=== PATIENT | male | born 1975 | race Caucasian/White ===

== ENCOUNTER 2019-12-20 06:56 | Day surgery (SDC) | payer OTHER ==
[2019-12-17 15:41] VITALS: BMI 41.5
[2019-12-20] MEDS ORDERED: MIDAZOLAM HCL 2 MG/2 ML SINGLE DOSE VIAL ONE (08:40)
[2019-12-20 08:59] VITALS: TEMP 97.9
[2019-12-20 10:26] VITALS: BP 126/87; PULSE 77
--- NOTE | 2019-12-24 16:56 | PATH ---
Surgical Pathology Report Patient Name: RANDEE HUITRON [facility]. Rec. #: [id number] /Age/Gender: 1975 (Age: 44) / M Account: [id number] Location: [facility] SURGICAL Taken: 12/20/2019 Received: 12/20/2019 Reported: 12/24/2019 Physicians: Yousif Acevedo M.D. Specimen(s) Received A: JEJUNUM B: STOMACH C: ESOPHAGUS D: TRANSVERSE COLON POLYP Clinical History History of anemia Postoperative diagnosis: Normal EGD with normal Roxanne-en-Y anatomy, colon polyps, hemorrhoids Final Diagnosis A. JEJUNUM, BIOPSY: SMALL BOWEL MUCOSA WITHOUT SIGNIFICANT PATHOLOGIC FINDINGS. B. STOMACH, BIOPSY: GASTRIC BODY MUCOSA WITH MODERATE CHRONIC ACTIVE GASTRITIS. IMMUNOHISTOCHEMICAL STAIN FOR H. PYLORI IS POSITIVE (FEW). C. ESOPHAGUS, BIOPSY: SQUAMOUS MUCOSA WITH CHANGES OF MILD REFLUX TYPE ESOPHAGITIS. D. 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 SEE COMMENT. Comment: Part D, Immunohistochemical stain performed and interpreted at [facility] show the spindle cell proliferation is positive for S100. Positive and negative controls (internal if applicable) show appropriate results. Electronically Signed Rimma Tovar M.D. Gross Description A. Received in formalin, labeled "jejunum biopsy" is a felix, irregular portion of soft tissue measuring 0.4 cm. in greatest dimension. The specimen is submitted in toto in one cassette. B. Received in formalin, labeled "stomach biopsy" are 2 felix, irregular portions of soft tissue measuring 0.4 and 0.5 cm. in greatest dimension. The specimens are submitted in toto in one cassette. C. Received in formalin, labeled "esophagus biopsy" is a felix, irregular portion of soft tissue measuring 0.3 cm. in greatest dimension. The specimen is submitted in toto in one cassette. D. Received in formalin, labeled "transverse colon polyp biopsy" is a felix, irregular portion of soft tissue measuring 0.1 cm. in greatest dimension. The specimen is submitted in toto in one cassette. DL/12/20/2019 saudi/12/20/2019
== END 2019-12-20 10:00 | disposition home or self-care (01) ==
LOC: JASU-SURG 06:56
PROVIDERS: ATTEND Internal Medicine Gastroenterology
PROC: 0DB38ZX Excision of Lower Esophagus, Via Natural or Artificial Opening Endoscopic, Diagnostic (ICD-10-PCS; 2019-12-20)
PROC: 0DB68ZX Excision of Stomach, Via Natural or Artificial Opening Endoscopic, Diagnostic (ICD-10-PCS; 2019-12-20)
PROC: 0DBA8ZX Excision of Jejunum, Via Natural or Artificial Opening Endoscopic, Diagnostic (ICD-10-PCS; 2019-12-20)
PROC: 0DBL8ZX Excision of Transverse Colon, Via Natural or Artificial Opening Endoscopic, Diagnostic (ICD-10-PCS; principal; 2019-12-20 08:00)
DX: D50.9 Iron deficiency anemia, unspecified (principal); K64.8 Other hemorrhoids; D12.3 Benign neoplasm of transverse colon; E66.01 Morbid (severe) obesity due to excess calories; I10 Essential (primary) hypertension; Z98.84 Bariatric surgery status
CPT/HCPCS: 88305-TC; 88342-TC